=== PATIENT | male | born 1955 | race African-American/Black ===

== ENCOUNTER 2021-09-11 18:45 | Emergency (ER) | payer OTHER ==
[2021-09-11 19:22] VITALS: BP 138/69; PULSE 78; TEMP 99; BMI 37.3
[2021-09-11 20:18] LABS: BASO % 0.9 % (0-2.0); EOS % 1.8 % (0-4.5); HEMATOCRIT 40.8 % (35.4-49); HEMOGLOBIN 13.6 GM/dL (11.7-16.9); LYMPH % 19.2 % (8-40); MCH 31.4 pg (25.7-33.7); MCHC 33.4 g/dl (32.0-35.9); MEAN CELL VOLUME 94.1 fl (80-96); MEAN PLT VOLUME 8.9 fl (7.5-11.1); MONO % 9.6 % (3.8-10.2); NEUT % 68.5 % (42.8-82.8); PLATELET COUNT 249 10^3/uL (134-434); RBC 4.34 M/mm3 (4.00-5.60); RDW 14.3 % (11.9-15.9); WHITE BLOOD COUNT 7.4 K/mm3 (4.0-10.0)
== END 2021-09-11 20:55 | disposition home or self-care (01) ==
LOC: JER 18:45
DX: I10 Essential (primary) hypertension (principal)
CPT/HCPCS: 36415; 82550; 84484; 85025; 93005; 93010; 99284-25

== ENCOUNTER 2021-09-27 13:10 | Emergency (ER) | payer BC, OTHER ==
[2021-09-27 13:40] VITALS: PULSE 96; BMI 35.1
[2021-09-27 18:45] VITALS: TEMP 99.9
[2021-09-27 19:01] VITALS: BP 150/85
[2021-09-29 16:07] LABS: SARS-CoV-2 NAA Detected (Not Detected)
== END 2021-09-27 19:04 | disposition home or self-care (01) ==
LOC: JER 13:10
DX: U07.1 COVID-19 (principal); G47.00 Insomnia, unspecified
CPT/HCPCS: 71046-TC-FY; 82962; 87804; 99284-25; C9803; U0003; U0005